=== PATIENT | male | born 1950 | race Caucasian/White ===

== ENCOUNTER 2017-02-08 19:09 | Emergency (ER) | payer MEDICARE, OTHER ==
[~2017-02-08 19:09] MED LIST: ALLOPURINOL100 MG PO; LASIX20 MG PO; POTASSIUM CHLO20 ME1 PO; PRILOSEC20 MG PO; PROCARDIA XL30 MG PO; SYNTHROID50 MCG PO; ULTRAM50 MG PO; ZESTRIL10 MG PO
== END 2017-02-08 21:05 | disposition other institution (70) ==
LOC: ER 19:09
DX: R53.1 Weakness (principal); Z86.73 Personal history of transient ischemic attack (TIA), and cerebral infarction without residual deficits; I50.9 Heart failure, unspecified; I10 Essential (primary) hypertension; Z96.652 Presence of left artificial knee joint; Z79.899 Other long term (current) drug therapy
CPT/HCPCS: 99283; 99285-25

== ENCOUNTER 2017-02-08 19:09 | Inpatient (IN) | payer MEDICARE, OTHER ==
[~2017-02-08] VITALS: Ht 175.3 cm; Wt 105.0 kg
[2017-02-08 19:37] LABS: BASO % 0.3 % (0.2-1.2); EOS % 0.6 % (0.8-7.0); GRAN # 1.6 10_X3_uL (1.8-5.4); GRAN % 51.2 % (34.0-67.9); HEMATOCRIT 46.7 % (40-51); HEMOGLOBIN 15.3 g/dL (13.7-17.5); LYMPH # 0.8 10_X3_uL (1.3-3.6); LYMPH % 26.3 % (21.8-53.1); MEAN CORPUSCULAR HEMOGLOBIN 27.4 pg (27.0-33.0); MEAN CORPUSCULAR HGB CONC 32.8 g/dL (32.0-36.0); MEAN CORPUSCULAR VOLUME 83.7 fL (79-92); MEAN PLATELET VOLUME 11.4 fl (7.5-11.5); MONO # 0.7 10_X3_uL (0.3-0.8); MONO % 21.6 % (5.3-12.2); PLATELET COUNT 167 x10_3/uL (163-337); RED BLOOD COUNT 5.58 x10_6/uL (4.6-6.1); RED CELL DISTRIBUTION WIDTH 16.4 % (11.6-14.4); WHITE BLOOD COUNT 3.2 x10_3/uL (4.2-9.1)
[2017-02-08 19:52] LABS: ALBUMIN 3.5 gm/dL (3.4-5.0); BILIRUBIN,TOTAL 0.38 mg/dL (0.0-1.0); CALCIUM 8.5 mg/dL (8.7-10.7); CREATININE 3.6 mg/dL (0.6-1.3); POTASSIUM 4.2 mmol/L (3.5-5.1); TOTAL PROTEIN 6.5 gm/dL (6.4-8.2)
[2017-02-09 00:25] LABS: THYROID STIMULATING HORMONE 0.282 uIU/mL (0.34-4.82)
[2017-02-09 00:26] LABS: FREE T4 2.3 ng/dL (0.93-1.7)
[2017-02-09 07:45] LABS: CALCIUM 7.8 mg/dL (8.7-10.7); CREATININE 2.5 mg/dL (0.6-1.3); POTASSIUM 3.8 mmol/L (3.5-5.1)
[2017-02-09 07:49] LABS: BASO % 0.5 % (0.2-1.2); GRAN # 0.9 10_X3_uL (1.8-5.4); GRAN % 42.7 % (34.0-67.9); HEMATOCRIT 40.1 % (40-51); HEMOGLOBIN 13.1 g/dL (13.7-17.5); LYMPH # 0.7 10_X3_uL (1.3-3.6); LYMPH % 35.6 % (21.8-53.1); MEAN CORPUSCULAR HEMOGLOBIN 27.6 pg (27.0-33.0); MEAN CORPUSCULAR HGB CONC 32.7 g/dL (32.0-36.0); MEAN CORPUSCULAR VOLUME 84.4 fL (79-92); MEAN PLATELET VOLUME 11.5 fl (7.5-11.5); MONO # 0.4 10_X3_uL (0.3-0.8); MONO % 20.2 % (5.3-12.2); PLATELET COUNT 131 x10_3/uL (163-337); RED BLOOD COUNT 4.75 x10_6/uL (4.6-6.1); RED CELL DISTRIBUTION WIDTH 16.2 % (11.6-14.4)
[2017-02-09 07:54] LABS: WHITE BLOOD COUNT 2.1 x10_3/uL (4.2-9.1)
[2017-02-09 18:09] LABS: URINE BILIRUBIN NEGATIVE (NEGATIVE); URINE BLOOD NEGATIVE (NEGATIVE); URINE GLUCOSE (UA) NORMAL (NORMAL); URINE KETONE NEGATIVE (NEGATIVE); URINE LEUKOCYTE ESTERASE NEGATIVE (NEGATIVE); URINE NITRATE NEGATIVE (NEGATIVE); URINE PROTEIN TRACE (NEGATIVE); UROBILINOGEN NORMAL mg/dL (<1.0)
[2017-02-09 18:31] LABS: URINE AMORPHOUS SEDIMENT TRACE; URINE BACTERIA FEW (NONE SEEN); URINE MUCUS TRACE; URINE WBC 0-5 /[HPF] (0-3)
[2017-02-10 07:23] LABS: EOS % 1.8 % (0.8-7.0); GRAN # 0.7 10_X3_uL (1.8-5.4); GRAN % 38.7 % (34.0-67.9); HEMOGLOBIN 13.1 g/dL (13.7-17.5); LYMPH # 0.7 10_X3_uL (1.3-3.6); LYMPH % 39.3 % (21.8-53.1); MEAN CORPUSCULAR HEMOGLOBIN 27.2 pg (27.0-33.0); MEAN CORPUSCULAR VOLUME 85.2 fL (79-92); MEAN PLATELET VOLUME 11.8 fl (7.5-11.5); MONO # 0.3 10_X3_uL (0.3-0.8); MONO % 20.2 % (5.3-12.2); PLATELET COUNT 99 x10_3/uL (163-337); RED BLOOD COUNT 4.81 x10_6/uL (4.6-6.1); RED CELL DISTRIBUTION WIDTH 16.5 % (11.6-14.4)
[2017-02-10 07:35] LABS: ALBUMIN 2.6 gm/dL (3.4-5.0); BILIRUBIN,TOTAL 0.26 mg/dL (0.0-1.0); CALCIUM 7.8 mg/dL (8.7-10.7); CREATININE 1.5 mg/dL (0.6-1.3); POTASSIUM 4.1 mmol/L (3.5-5.1)
[2017-02-10 07:45] LABS: WHITE BLOOD COUNT 1.7 x10_3/uL (4.2-9.1)
[2017-02-11 08:12] LABS: EOS # 0.1 10_X3_uL (0.0-0.5); EOS % 3.9 % (0.8-7.0); GRAN # 0.8 10_X3_uL (1.8-5.4); GRAN % 37.5 % (34.0-67.9); HEMATOCRIT 43.2 % (40-51); HEMOGLOBIN 13.7 g/dL (13.7-17.5); LYMPH # 0.8 10_X3_uL (1.3-3.6); LYMPH % 41.4 % (21.8-53.1); MEAN CORPUSCULAR HEMOGLOBIN 26.8 pg (27.0-33.0); MEAN CORPUSCULAR HGB CONC 31.7 g/dL (32.0-36.0); MEAN CORPUSCULAR VOLUME 84.5 fL (79-92); MEAN PLATELET VOLUME 11.4 fl (7.5-11.5); MONO # 0.4 10_X3_uL (0.3-0.8); MONO % 17.2 % (5.3-12.2); PLATELET COUNT 103 x10_3/uL (163-337); RED BLOOD COUNT 5.11 x10_6/uL (4.6-6.1); RED CELL DISTRIBUTION WIDTH 16.9 % (11.6-14.4)
[2017-02-11 08:34] LABS: ALBUMIN 2.9 gm/dL (3.4-5.0); ALKALINE PHOSPHATASE 85 U/L (50-136); ALT/SGPT 9 U/L (7.53-40.17); AST/SGOT 16 U/L (6.66-35.34); BILIRUBIN,TOTAL 0.35 mg/dL (0.0-1.0); BLOOD UREA NITROGEN 16 mg/dL (7-18); CALCIUM 8.1 mg/dL (8.7-10.7); CARBON DIOXIDE 16 mmol/L (21-32); CREATININE 1.2 mg/dL (0.6-1.3); GLUCOSE,RANDOM 89 mg/dL (70-99); POTASSIUM 4.4 mmol/L (3.5-5.1); SODIUM 135 mmol/L (136-145); TOTAL PROTEIN 5.3 gm/dL (6.4-8.2)
== END 2017-02-11 11:18 | disposition home or self-care (01) | DRG 866 ==
LOC: ER 19:09 → MS 21:05 → ER 02-10 11:46 → UNDODEPER 02-10 21:48 → MS 02-11 11:18
PROVIDERS: Internal Medicine; ADMIT Family Medicine
DX: J10.89 Influenza due to other identified influenza virus with other manifestations (principal); N17.9 Acute kidney failure, unspecified; N18.9 Chronic kidney disease, unspecified; M34.9 Systemic sclerosis, unspecified; D72.819 Decreased white blood cell count, unspecified; D69.6 Thrombocytopenia, unspecified; D64.9 Anemia, unspecified; R53.1 Weakness; E86.0 Dehydration; Z79.899 Other long term (current) drug therapy; Z79.02 Long term (current) use of antithrombotics/antiplatelets; Z79.82 Long term (current) use of aspirin; Z96.652 Presence of left artificial knee joint
CPT/HCPCS: 36415; 71010; 80048; 80053; 81001; 82550; 82553; 82962; 83605; 84439; 84443; 84481; 85025; 87040; 87400; 93005; 96360; 96361; 99070; 99283; 99285-25